=== PATIENT | male | born 1985 | race Caucasian/White ===

== ENCOUNTER → 2023-01-10 11:08 | Outpatient (CLI) | payer OTHER, MEDICAID, SELFPAY ==
[2023-01-10 12:33] LABS: Basophils Absolute Auto 0 /uL (0-100); Basophils Percent Auto 0.3 % (0-2); Eosinophils Absolute Auto 100 /uL (0-450); Eosinophils Percent Auto 1.7 % (2-4); Hematocrit 40.4 % (41-53); Lymphocytes Absolute Auto 2400 /uL (1100-4500); Lymphocytes Percent Auto 35.5 % (25-40); Mean Corpuscular HGB Conc 34.7 % (30-36); Mean Corpuscular Hemoglobin 29.9 PG (26-34); Mean Corpuscular Volume 86.1 fL (80-100); Monocytes Absolute Auto 600 /uL (0-900); Monocytes Percent Auto 9.7 % (3-14); Neutrophils Absolute Auto 3500 /uL (1500-7000); Neutrophils Percent Auto 52.8 % (50-75); Platelet Count 251 X10^3/uL (150-400); Red Blood Cell Count 4.69 X10^6/uL (4.5-5.9); Red Cell Distribution Width 13.6 % (11.6-14.8); White Blood Cell Count 6.7 X10^3/uL (4.5-11.0)
[2023-01-10 12:40] LABS: Add Manual Diff / Slide Review SLIDE REVIEW; Hemoglobin A1C% w Est Avg Glu 5.6 % (4.0-6.0)
[2023-01-10 13:18] LABS: Alanine Aminotransferase 126 IU/L (<50); Albumin 4.4 g/dL (3.5-5.0); Albumin Globulin Ratio 1.8 (1.0-2.8); Alkaline Phosphatase 64 U/L (38-126); Aspartate Aminotransferase 71 IU/L (17-59); BUN Creatinine Ratio 18.3 (6-22); Bilirubin Total 0.3 mg/dL (0.2-1.3); Blood Urea Nitrogen 13 mg/dL (9-20); Carbon Dioxide 28 mmol/L (22-32); Chloride 101 mmol/L (98-107); Estimated Glomerular Filt Rate > 60 mL/min (>60); Globulin 2.4 g/dL (1.7-4.1); Glucose 99 mg/dL (70-100); HEMOLYSIS < 15 (0-50); Potassium 4.4 mmol/L (3.4-5.1); RBC Morphology Normal Morphology; Sodium 139 mmol/L (137-145); Total Protein 6.8 g/dL (6.3-8.2)
[2023-01-10 17:37] LABS: HIV 1 & 2 Ab/Ag 4th Gen Combo NEGATIVE (NEGATIVE); Hep C Virus Ab w/Reflex Quant NEGATIVE s/c (NEGATIVE)
[2023-01-11 04:47] LABS: Valproic Acid (Depakene) Total 69 ug/mL (50-100)
[2023-01-12 04:38] LABS: Cholesterol HDL Ratio 8.1 ratio (0.0-5.0); Cholesterol,Total 260 mg/dL (100-199); HDL Cholesterol 32 mg/dL (>39); LDL Cholesterol Cal 150 mg/dL (0-99); Triglycerides 416 mg/dL (0-149); VLDL Cholesterol Cal 78 mg/dL (5-40)
== END ==
PROVIDERS: PCP Family Medicine; Referring Provider Family Medicine; Visit Provider Family Medicine
DX: Z00.00 Encounter for general adult medical examination without abnormal findings (principal); Z11.4 Encounter for screening for human immunodeficiency virus [HIV]; Z11.59 Encounter for screening for other viral diseases; Z79.899 Other long term (current) drug therapy; F41.9 Anxiety disorder, unspecified
CPT/HCPCS: 36415; 80053; 80061; 80164; 83036; 85025; 86803; 87389

== ENCOUNTER → 2023-05-03 09:47 | Outpatient (CLI) | payer OTHER, MEDICAID, SELFPAY ==
--- NOTE | 2023-05-03 09:48 | DI.RAD.S_ITS ---
PROCEDURE: XR FOREARM RT 2V INDICATIONS: Right forearm/wrist pain x1 month after hyperflexion injury TECHNIQUE: 2 views of the forearm were acquired. COMPARISON: None. FINDINGS: Bones: No fractures or dislocations. No suspicious bony lesions. Soft tissues: No suspicious soft tissue calcifications or masses. IMPRESSION: No acute bony abnormality. Dictated by: Arya Recinos M.D. on 05/03/2023 at 11:47 Approved by: Arya Recinos M.D. on 05/03/2023 at 11:48
--- NOTE | 2023-05-03 09:48 | DI.RAD.S_ITS ---
PROCEDURE: XR WRIST RT MIN 3V INDICATIONS: Right forearm/wrist pain x1 month after hyperflexion injury TECHNIQUE: 4 views of the wrist were acquired. COMPARISON: None. FINDINGS: Bones: No fractures or dislocations. No suspicious bony lesions. Soft tissues: No suspicious soft tissue calcifications. IMPRESSION: No acute bony abnormality. Dictated by: Arya Recinos M.D. on 05/03/2023 at 11:47 Approved by: Arya Recinos M.D. on 05/03/2023 at 11:47
== END ==
LOC: RAD 09:48
PROVIDERS: PCP Family Medicine; Referring Provider Family Medicine; Visit Provider Family Medicine
DX: M25.531 Pain in right wrist (principal)
CPT/HCPCS: 73090; 73110

== ENCOUNTER → 2023-11-30 10:03 | Outpatient (CLI) | payer OTHER, SELFPAY ==
--- NOTE | 2023-11-30 10:05 | DI.RAD.S_ITS ---
PROCEDURE: XR HAND LT MIN 3V INDICATIONS: tender bump at base of 1st metacarpal TECHNIQUE: 3 views of the left hand(s) acquired. COMPARISON: None. FINDINGS: Bones: No fractures or dislocations. Carpal bones are normally aligned. No suspicious bony lesions. No significant degenerative changes present. Soft tissues: No suspicious soft tissue calcifications. No foreign bodies are identified. IMPRESSION: No acute bony abnormality. Dictated by: Tom Santana M.D. on 11/30/2023 at 11:18 Approved by: Tom Santana M.D. on 11/30/2023 at 11:19
== END ==
PROVIDERS: PCP Family Medicine; Referring Provider Family Medicine; Visit Provider Family Medicine
DX: M79.645 Pain in left finger(s) (principal)
CPT/HCPCS: 73130

== ENCOUNTER → 2023-12-26 08:07 | Outpatient (CLI) | payer OTHER, SELFPAY ==
--- NOTE | 2023-12-26 08:08 | DI.US.S_ITS ---
PROCEDURE: US ABDOMEN LIMITED INDICATIONS: ELEVATED LIVER FUNCTION TESTS TECHNIQUE: Real-time scanning was performed of the abdominal and retroperitoneal organs, with image documentation. COMPARISON: None. FINDINGS: Liver: Liver is enlarged and measures 21.3 cm in length. Diffusely increased liver parenchymal echotexture is seen, no discrete hepatic lesion. Gallbladder: There is no gallstone. No gallbladder wall thickening or pericholecystic fluid. No sonographic Heart sign. Biliary ducts: No intrahepatic biliary ductal dilatation. Extrahepatic ducts are not well seen due to overlying bowel gas. Pancreas: Visualized portions of the pancreas show mildly increased echotexture compared to the liver parenchyma. Miscellaneous: No free abdominal fluid. IMPRESSION: 1. Hepatomegaly and hepatic steatosis. 2. Normal appearing gallbladder. No gross biliary ductal dilatation. 3. Nonspecific mildly increased pancreatic parenchymal echotexture. No discrete pancreatic lesion. Dictated by: Dyllan Terry M.D. on 12/26/2023 at 11:06 Approved by: Dyllan Terry M.D. on 12/26/2023 at 11:08
== END ==
PROVIDERS: PCP Family Medicine; Referring Provider Family Medicine; Visit Provider Family Medicine
DX: K76.0 Fatty (change of) liver, not elsewhere classified (principal); E66.9 Obesity, unspecified; R74.8 Abnormal levels of other serum enzymes
CPT/HCPCS: 76705

== ENCOUNTER → 2024-06-23 14:04 | Outpatient (CLI) | payer OTHER, SELFPAY ==
[2024-06-23 15:04] LABS: Cholesterol 269 mg/dL (140-199); HDL Cholesterol 39 mg/dL (40-60); Triglycerides 509 mg/dL (35-150)
[2024-06-23 15:20] LABS: Vitamin D 25 Hydroxy (D3) 22.4 ng/mL (30.0-100.0)
[2024-06-23 15:32] LABS: Microalbumin Urine Random 2.2 mg/dL (0-1.6)
[2024-07-04 12:38] LABS: Percent Free Testosterone 3.78 % (1.50-4.20); Testosterone Free 6.43 ng/dL (5.00-21.00)
== END ==
PROVIDERS: PCP Family Medicine; Referring Provider Family Medicine; Visit Provider Family Medicine
DX: E11.9 Type 2 diabetes mellitus without complications (principal); E78.5 Hyperlipidemia, unspecified; E55.9 Vitamin D deficiency, unspecified; E29.1 Testicular hypofunction
CPT/HCPCS: 36415; 80061; 82043; 82306; 82570; 84402; 84403